=== PATIENT | male | born 2000 | race Two or more races ===

== ENCOUNTER 2024-11-11 23:30 | Emergency (ER) | payer OTHER ==
[~2024-11-11] VITALS: Ht 185.4 cm; Wt 74.8 kg
[2024-11-12] MEDS ORDERED: TETANUS & DIPHTHERIA TOX,ADULT 0.5 ML VIAL IM STA (04:10)
[2024-11-12] MEDS ORDERED: CEFAZOLIN SODIUM 1,000 MG VIAL IM STA (04:10)
== END 2024-11-12 04:39 | disposition home or self-care (01) ==
LOC: ER 23:30
DX: S01.81XA Laceration without foreign body of other part of head, initial encounter (principal); W45.8XXA Other foreign body or object entering through skin, initial encounter; Y93.89 Activity, other specified; Y92.89 Other specified places as the place of occurrence of the external cause; Y99.9 Unspecified external cause status

== ENCOUNTER 2024-11-22 12:59 | Emergency (ER) | payer OTHER ==
[~2024-11-22] VITALS: Ht 185.4 cm; Wt 74.8 kg
== END 2024-11-22 14:31 | disposition home or self-care (01) ==
LOC: ER 13:01
DX: Z48.02 Encounter for removal of sutures (principal)